=== PATIENT | female | born 1980 | race Caucasian/White ===

== ENCOUNTER 2017-09-20 12:11 | Emergency (ER) | payer OTHER, SELFPAY ==
[2017-09-20 12:14] VITALS: BP 188/111; BP 190/107; PULSE 101; PULSE 114; RESP 17; TEMP 36.8; O2SAT 98; O2SAT 99; BMI 48.1
[2017-09-20 12:21] VITALS: O2SAT 99
--- NOTE | 2017-09-20 12:37 | CT_ITS ---
STUDY: CT BRAIN WITHOUT CONTRAST REASON FOR EXAM: Female, 37 years old. RADIATION DOSAGE (If Supplied By Facility): CTDIvol = ( 44.99 ) mGy, DLP = ( 745.49 ) mGycm TECHNIQUE: Transaxial CT imaging of the brain was performed without administration of intravenous contrast material. Individualized dose optimization techniques were used for this CT. COMPARISON: None. FINDINGS: No evidence for shift of midline structures, mass effect or compression of the ventricles noted. No acute intra or extra-axial hemorrhage is seen. No abnormal intracranial fluid collections identified. A low-attenuation area in the posterior limb of the right internal capsule noted which may relate with a prominent perivascular space or chronic small infarct. The calvarium is intact. The mastoid air cells are clear. Partial opacification of the ethmoid vessels noted. Minimal mucosal thickening of the maxillary sinuses. CT/Brain/Head without Contrast IMPRESSION: No evidence for acute intracranial hemorrhage, mass effect or acute large territory infarcts. A low-attenuation area in the posterior limb of the right internal capsule noted which may relate with a prominent perivascular space or chronic small infarct Electronically Signed: Jacinto Zavala, at 13:24 EST Tel , Service support ,
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
[2017-09-20 14:30] VITALS: BP 158/96; PULSE 108; RESP 18; O2SAT 96
== END 2017-09-20 14:31 | disposition home or self-care (01) ==
LOC: ED 13:12
PROVIDERS: Emergency Provider Emergency Medicine; Family Provider Internal Medicine; PCP Internal Medicine
DX: S06.0X0A Concussion without loss of consciousness, initial encounter (principal); V89.2XXA Person injured in unspecified motor-vehicle accident, traffic, initial encounter; Y93.9 Activity, unspecified; Y92.9 Unspecified place or not applicable; Y99.9 Unspecified external cause status; Z72.0 Tobacco use
CPT/HCPCS: 70450; 99284

== ENCOUNTER 2019-10-29 10:08 | Emergency (ER) | payer MEDICAID, SELFPAY ==
[2019-10-29 10:09] VITALS: BP 139/72; PULSE 112; RESP 20; TEMP 36.7; O2SAT 99; BMI 48.7
[2019-10-29] MEDS: Famotidine 20 MG Tablet 40 MG PO (10:36)
[2019-10-29] MEDS: DiphenhydrAMINE 25 MG Capsule 50 MG PO (10:36)
--- NOTE | 2019-10-29 10:41 | ED.DCSUM_ITS ---
- ER Visit Summary Date of Service: 10/29/19 Chief Complaint: Hives History of Present Illness: The patient is a [address] Cartagena. She reports that she was placed on trazodone 3 weeks ago. Patient denies any change in soap, shampoo, laundry detergent, or fabric softener. No new clothing, beddi ng, carpeting, or pets. Patient reports that she has hives that began 4 days ago. She was seen in urgent care and was placed on prednisone. She is currently taking 40 mg a day. She has continued to take the trazodone. Her last dose was at 1030 yesterday. She reports that the rash worsened and she began getting short of breath at 4:00 this morning. Her last dose of Benadryl was at 1030 last night as well. Patient reports that she does have a cough that is accompanied this, but she states it feels more like a lump in her throat that is making her cough. She denies any fever or sore throat. Her cough is nonproductive. She does report she feels mildly short of breath. 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 No one else comes into his house. Otherwise she is maintained at the stay at home order. She lives with her and children who are not ill. She does not believe that she has been exposed to coronavirus. Physical Examination: Vitals: Stable. Afebrile. General: Well-nourished and well-developed. Head: Normocephalic atraumatic. HEENT: No angioedema of the lips, tongue, oropharynx. Neck: Supple, no lymphadenopathy. No JVD. Nontender. Cardiovascular: Regular rate and rhythm. No murmurs. Respiratory: No respiratory distress. Clear to auscultation bilaterally. Abdominal: Soft, nontender, nondistended, normal bowel sounds. No guarding, rebound, or peritoneal signs. Back: Nontender. Extremities: Nontender, no edema. Skin: Diffuse urticarial lesions. Neurologic: Alert and oriented ?3. Cranial nerves II through XII are intact. Normal strength and sensation. Psych: Normal affect. Emergency Department Course and Treatment: I reviewed trazodone and it can cause a rash. It can also cause hypertension which she has been experiencing. She was given a dose of Benadryl and Pepcid here. She is already taken prednisone this morning. Treatment Plan: Patient will be discharged with instructions to use Claritin which she already has. She will also be placed on Pepcid. Continue her prednisone. Stop taking the trazodone. Follow-up with her primary care physician 1 to 2 days if not improving. Return to the emergency department for any worsening symptoms. Disposition: To home in improved and stable condition. Impression: 1. Allergic reaction. This note was generated with [employer] dictation software. It may contain incorrect words, spelling, and punctuation that were not noted in review of the chart prior to signing ED Disposition - Plan for ED Patient: Instructions: ED ADVERSE DRUG REACTION Allergic Prescriptions: Famotidine [Pepcid] 40 mg PO DAILY #14 tablet Referrals: Uri Cartagena MD [Primary Care Provider] - 1-2 Days if not improving
== END 2019-10-29 10:59 | disposition home or self-care (01) ==
PROVIDERS: Emergency Provider Emergency Medicine; PCP Internal Medicine
DX: L50.0 Allergic urticaria (principal); Z72.0 Tobacco use
CPT/HCPCS: 99283

== ENCOUNTER 2020-07-26 09:53 | Day surgery (SDC) | payer MEDICAID, SELFPAY ==
[2020-07-11 08:43] VITALS: BMI 48.9
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
[2020-07-26 10:14] VITALS: BP 137/95; PULSE 85; RESP 18; TEMP 36.3; O2SAT 99; BMI 48.3
[2020-07-26 10:20] LABS: Internal QC Validated? YES +Cl - CLEAR BKGD; Pregnancy, Urine Negative Negative
[2020-07-26] MEDS: Lactated Ringers 1,000 ML 100 ML IV (10:33)
--- NOTE | 2020-07-26 11:00 | COLBX_PTH ---
PATIENT: SAMSON CASTRO LOC: EN U#:[id number] AGE/SX: 40/F ROOM: RE07/26/[address]: Dr. Valeriy Vickers MD : 1980 BED: DIS: 07/26/2020 SPEC #: [id number] RECD: 07/26/20 13:58 STATUS: GM MEHDI #: [id number] QUANG: 07/26/20 11:[address]: Valeriy Vickers DEPT: SURGICAL PATHOLOGY RECD BY: Janel Valentin ENTERED: 07/26/20 14:05 SP TYPE: COLON BX OTHR DR: Dr. Uri Cartagena MD Tissues: Sigmoid colon biopsy Procedures: Surgery Specimen Level IV HEADER OPERATION: [place] DIAGNOSIS: GERD; family history colon cancer TISSUE SUBMITTED: Sigmoid colon biopsy MICROSCOPIC DIAGNOSIS Sigmoid colon, biopsy: No pathologic change. AM:sea 07/31/2020 MICROSCOPIC DESCRIPTION Slides are reviewed. GROSS DESCRIPTION Received in fixative is one container labeled with the patient's name and designated sigmoid colon biopsy. The specimen consists of two irregular fragments of light ramey soft tissue that in aggregate measure 1 x 0.5 x 0.1 cm. The specimen is totally submitted in one cassette. / AM:sea 07/27/20 TC:5 CPT: 25337
[2020-07-26 11:16] VITALS: BP 137/72; BP 137/95; PULSE 74; RESP 18; TEMP 36.3; O2SAT 98
--- NOTE | 2020-07-26 11:18 | OP.EGD_ITS ---
Patient Name: Ricarda Weiner Procedure Date: 07/26/2020 10:37 AM Date of : 1980 Age: 40 Procedure: Upper GI endoscopy Indications: Heartburn, Suspected gastro-esophageal reflux disease Providers: Valeriy Vickers MD Referring MD: Uri Cartagena Medicines: Monitored Anesthesia Care Patient Profile: This is a 40 year old female. Refer to note in patient chart for documentation of history and physical. Complications: No immediate complications. Procedure: Pre-Anesthesia Assessment: - Prior to the procedure, a History and Physical was performed, and patient medications and allergies were reviewed. The patient's tolerance of previous anesthesia was also reviewed. The risks and benefits of the procedure and the sedation options and risks were discussed with the patient. All questions were answered, and informed consent was obtained. Prior Anticoagulants: The patient has taken no previous anticoagulant or antiplatelet agents. After reviewing the risks and benefits, the patient was deemed in satisfactory condition to undergo the procedure. After obtaining informed consent, the endoscope was passed under direct vision. Throughout the procedure, the patient's blood pressure, pulse, and oxygen saturations were monitored continuously. The gastroscope was introduced through the mouth, and advanced to the second part of duodenum. The upper GI endoscopy was accomplished without difficulty. The patient tolerated the procedure well. Scope In: 10:57:59 AM Scope Out: 10:59:44 AM Total Procedure Duration Time 0 hours 1 minute 45 seconds Findings: The esophagus was normal. The stomach was normal. The examined duodenum was normal. Impression: - Normal esophagus. - Normal stomach. - Normal examined duodenum. - No specimens collected. Recommendation: - Discharge patient to home. - Resume previous diet. - Continue present medications. Procedure Code(s): --- Professional --- 18157, Esophagogastroduodenoscopy, flexible, transoral; diagnostic, including collection of specimen(s) by brushing or washing, when performed (separate procedure) Diagnosis Code(s): --- Professional --- R12, Heartburn CPT copyright 2017 [employer]. All rights reserved. The codes documented in this report are preliminary and upon shingle carrier review may be revised to meet current compliance requirements. Valeriy Vickers MD 07/26/2020 11:18:20 AM This report has been signed electronically. Number of Addenda: 0 Note Initiated On: 07/26/2020 10:37 AM
--- NOTE | 2020-07-26 11:18 | OP.CCLET_ITS ---
07/26/2020 Uri Cartagena [address] [place] [address] Re : Upper GI endoscopy procedure for Ricarda Weiner Dear Dr. Cartagena This procedure was performed on Sunday, July 26, 2020. My impressions and recommendations are as follows: Impressions : - Normal esophagus. - Normal stomach. - Normal examined duodenum. - No specimens collected. Recommendations : - Discharge patient to home. - Resume previous diet. - Continue present medications. My findings are described in the full procedure note, which is enclosed. If I can be of further assistance, please feel free to contact me at Doctor phone number(s): , Work: . Sincerely, Valeriy Vickers MD 07/26/2020 11:18:20 AM This report has been signed electronically.
[2020-07-26 11:20] VITALS: BP 125/84; BP 137/95; PULSE 73; RESP 18; O2SAT 99
--- NOTE | 2020-07-26 11:20 | OP.CCLET_ITS ---
07/26/2020 Uri Cartagena [address] [place] [address] Re : Colonoscopy procedure for Ricarda Husam Dear Dr. Cartagena This procedure was performed on Sunday, July 26, 2020. My impressions and recommendations are as follows: Impressions : - Congested mucosa in the sigmoid colon. Biopsied. - The examination was otherwise normal on direct and retroflexion views. Recommendations : - Discharge patient to home. - Resume previous diet. - Continue present medications. - Await pathology results. - Repeat colonoscopy in 5 years for surveillance. My findings are described in the full procedure note, which is enclosed. If I can be of further assistance, please feel free to contact me at Doctor phone number(s): , Work: . Sincerely, Valeriy Vickers MD 07/26/2020 11:20:29 AM This report has been signed electronically.
--- NOTE | 2020-07-26 11:20 | OP.COLON_ITS ---
Patient Name: Ricarda Weiner Procedure Date: 07/26/2020 11:00 AM Date of : 1980 Age: 40 Procedure: Colonoscopy Indications: Screening in patient at increased risk: Colorectal cancer in mother before age 60 Providers: Valeriy Vickers MD Referring MD: Uri Cartagena Medicines: Monitored Anesthesia Care Patient Profile: This is a 40 year old female. Refer to note in patient chart for documentation of history and physical. Last Colonoscopy: none. The patient's first colonoscopy is today. Complications: No immediate complications. Estimated blood loss: Minimal. Procedure: Pre-Anesthesia Assessment: - Prior to the procedure, a History and Physical was performed, and patient medications and allergies were reviewed. The patient's tolerance of previous anesthesia was also reviewed. The risks and benefits of the procedure and the sedation options and risks were discussed with the patient. All questions were answered, and informed consent was obtained. Prior Anticoagulants: The patient has taken no previous anticoagulant or antiplatelet agents. After reviewing the risks and benefits, the patient was deemed in satisfactory condition to undergo the procedure. After I obtained informed consent, the scope was passed under direct vision. Throughout the procedure, the patient's blood pressure, pulse, and oxygen saturations were monitored continuously. The pediatric colonoscope was introduced through the anus and advanced to the cecum, identified by appendiceal orifice and ileocecal valve. The colonoscopy was performed without difficulty. The patient tolerated the procedure well. The quality of the bowel preparation was good. Scope In: 11:01:22 AM Scope Withdrawal Time 0 hours 5 minutes 32 seconds Scope Out: 11:10:13 AM Total Procedure Duration Time 0 hours 8 minutes 51 seconds Findings: An area of mildly congested mucosa was found in the sigmoid colon. This was biopsied with a cold forceps for histology. The exam was otherwise without abnormality on direct and retroflexion views. Impression: - Congested mucosa in the sigmoid colon. Biopsied. - The examination was otherwise normal on direct and retroflexion views. Recommendation: - Discharge patient to home. - Resume previous diet. - Continue present medications. - Await pathology results. - Repeat colonoscopy in 5 years for surveillance. Procedure Code(s): --- Professional --- 85631, Colonoscopy, flexible; with biopsy, single or multiple Diagnosis Code(s): --- Professional --- Z80.0, Family history of malignant neoplasm of digestive organs K63.89, Other specified diseases of intestine CPT copyright 2017 [employer]. All rights reserved. The codes documented in this report are preliminary and upon manager banking review may be revised to meet current compliance requirements. Valeriy Vickers MD 07/26/2020 11:20:29 AM This report has been signed electronically. Number of Addenda: 0 Note Initiated On: 07/26/2020 11:00 AM
[2020-07-26 11:25] VITALS: BP 137/95; BP 143/99; PULSE 76; RESP 69; O2SAT 100
[2020-07-26 11:30] VITALS: BP 130/106; BP 137/95; PULSE 64; RESP 18; TEMP 36.3; O2SAT 100
[2020-07-26 11:58] VITALS: BP 137/95
== END 2020-07-26 12:00 | disposition home or self-care (01) ==
LOC: EN 09:53 → AC 09:54
PROVIDERS: Anesthesiology; PCP Internal Medicine; Referring Provider Internal Medicine; Visit Provider Surgery
PROC: 0DJD8ZZ Inspection of Lower Intestinal Tract, Via Natural or Artificial Opening Endoscopic (ICD-10-PCS; CPT 45378; principal; 2020-07-26 10:55)
DX: Z12.11 Encounter for screening for malignant neoplasm of colon (principal); K21.9 Gastro-esophageal reflux disease without esophagitis; E66.01 Morbid (severe) obesity due to excess calories; F17.200 Nicotine dependence, unspecified, uncomplicated; I10 Essential (primary) hypertension; Z68.42 Body mass index [BMI] 45.0-49.9, adult; Z80.0 Family history of malignant neoplasm of digestive organs; Z20.828 Contact with and (suspected) exposure to other viral communicable diseases; Z79.899 Other long term (current) drug therapy
CPT/HCPCS: 43235; 45380; 81025; 87426; 88305; C9803; J7120; J2405

== ENCOUNTER 2020-11-12 14:28 | Emergency (ER) | payer MEDICAID, SELFPAY ==
[2020-11-12 14:30] VITALS: BP 164/100; PULSE 106; RESP 16; TEMP 36.6; O2SAT 95; BMI 48.8
--- NOTE | 2020-11-12 14:56 | ED.DCSUM_ITS ---
- ER Visit Summary Date of Service: 11/12/20 Chief Complaint: Dental pain History of Present Illness: The patient is a [address] Cartagena. She does not have a dentist. She reports that she broke her left mandibular third molar approximately week ago. She did not have any pain until yesterday. She reports that since that time she had a sharp pain is 1010 worsening to 10 currently. Is worsened by eating. She taken ibuprofen without relief. She does report is sensitive to hot and cold temperatures. Physical Examination: Vitals: Stable. Afebrile. Mouth: No trismus. No edema of the floor of the mouth. Pain with percussion of left mandibular third molar. Posterior corner of this tooth is avulsed. There is no focal abscess. General: A&O x 3. NAD. Cardiovascular exam: Regular rate and rhythm, no murmur, rub or gallop. Respiratory exam: Clear to auscultation bilaterally. No wheezes or stridor. Abdominal exam: Soft, nontender, nondistended, normal bowel sounds. No peritoneal signs. Extremity: No clubbing, cyanosis, or edema. Emergency Department Course and Treatment: Patient was given a dose of morphine and Toradol IM. She was given Zofran and penicillin p.o. Treatment Plan: Patient will be discharged with [place], penicillin, and Zofran. Instructed to follow-up with dentist soon as possible. A list of local dentists was provided. Return to the emergency department for any worsening symptoms. Disposition: To home in improved and stable condition. Impression: 1. Dental pain. This note was generated with [email or web address] dictation software. It may contain incorrect words, spelling, and punctuation that were not noted in review of the chart prior to signing ED Disposition - Plan for ED Patient: Disposition: Home or Assisted Living Instructions: ED Dental Pain Prescriptions: Hydrocodone Bitart/Apap 5-325 [[place] 5MG-325MG] 1 tablet PO Q4H PRN PRN 2 Days #10 tab PRN Reason: Pain Prescription Printed Penicillin V Potassium 500 mg PO 4X/DAY #40 tablet Prescription Printed Ondansetron [Zofran Odt] 4 mg PO Q8H PRN PRN #10 tablet PRN Reason: Nausea Prescription Printed Referrals: Dentist,Your [STAFF PHYSICIAN] - As soon as possible
[2020-11-12] MEDS: Penicillin Vk 250 MG Tablet 500 MG PO (15:07)
[2020-11-12] MEDS: Ketorolac 30 MG/ML Syringe IM (15:08)
[2020-11-12] MEDS: Ondansetron ODT 4 MG Tablet PO (15:08)
[2020-11-12] MEDS: morphine 8 MG/ML Syringe IM (15:11)
[2020-11-12 15:15] VITALS: BP 159/102; PULSE 94; RESP 20; O2SAT 97
== END 2020-11-12 15:41 | disposition home or self-care (01) ==
PROVIDERS: Emergency Provider Emergency Medicine; PCP Internal Medicine
DX: K08.89 Other specified disorders of teeth and supporting structures (principal); I10 Essential (primary) hypertension; Z72.0 Tobacco use; Z79.899 Other long term (current) drug therapy
CPT/HCPCS: 96372; 99283

== ENCOUNTER → 2022-06-18 | Outpatient (CLI) | payer MEDICAID, SELFPAY ==
--- NOTE | 2022-06-18 16:53 | BI_ITS ---
MAMMOGRAPHY - BILATERAL SCREENING REASON FOR EXAM: Female, 42 years old. Routine annual screening examination. PERTINENT HISTORY: Non-contributory. TECHNIQUE: Digital bilateral breast david (3D mammographic acquisition) in the CC and MLO projections. 2-D mediolateral oblique (MLO) and craniocaudad (CC) views of both breasts were obtained. CAD: Full Field Digital Mammography with Computer Added Detection was performed. COMPARISON: None. Baseline examination. FINDINGS: Breast Composition: There are scattered areas of fibroglandular density. There is an asymmetry in the right upper breast, middle depth, approximately 10.5 cm posterior to nipple, and seen best on 3-D david MLO views. Further assessment recommended with spot compression views and ultrasound as needed. No suspicious calcifications. BI/SCRN MAMM (CAD)W/DAVID BILAT IMPRESSION: Further imaging evaluation recommended, as described above. (E) Recall Side: Right Breast ASSESSMENT CATEGORY: BIRADS Category 0: Incomplete. Need additional imaging evaluation. A letter regarding these results will be sent to the patient by the facility within 30 days. Approximately 10% of breast cancers are not detected by mammography. A normal mammogram should not delay biopsy of a clinically suspicious abnormality. Electronically Signed: Siva Guaman, at 11:32 EST ,
== END | disposition home or self-care (01) ==
DX: Z12.31 Encounter for screening mammogram for malignant neoplasm of breast (principal)
CPT/HCPCS: 77063; 77067

== ENCOUNTER → 2022-07-02 | Outpatient (CLI) | payer MEDICAID, SELFPAY ==
--- NOTE | 2022-07-02 14:34 | US_ITS ---
STUDY: ULTRASOUND BREAST - RIGHT REASON FOR EXAM: Female, 42 years old. Abnormal screening mammogram. TECHNIQUE: Axial and longitudinal images of the RIGHT breast were performed with a high resolution ultrasound transducer. # OF IMAGES: 37 COMPARISON: Comparison is made with prior mammogram dated 07/02/2022 and 06/18/2022. FINDINGS: RIGHT Breast: The upper outer aspect of the right breast was examined by ultrasound. No sonographic abnormality is seen. US/Breast Limited Unilateral IMPRESSION: No sonographic abnormality is seen. ASSESSMENT CATEGORY: BIRADS Category 1: Negative. A letter regarding these results will be sent to the patient by the facility within 30 days. Electronically Signed: Derrick Garg MD at 12:53 EST ,
--- NOTE | 2022-07-02 14:34 | BI_ITS ---
MAMMOGRAPHY - UNILATERAL DIAGNOSTIC: RIGHT BREAST REASON FOR EXAM: Female, 42 years old. Abnormal screening mammogram. PERTINENT HISTORY: Non-contributory. TECHNIQUE: Compression spot views of the right breast in the mediolateral oblique and craniocaudal projections were obtained. CAD: Full Field Digital Mammography with Computer Added Detection was performed. COMPARISON: Comparison is made with prior study dated 06/18/2022. FINDINGS: Breast Composition: There are scattered areas of fibroglandular density. There are no dominant masses or suspicious calcifications. No other significant abnormalities are identified. BI/DIAG MAMM W/CAD, UNILAT IMPRESSION: Negative unilateral diagnostic mammogram. Correlation with targeted ultrasound of the breast is recommended. ASSESSMENT CATEGORY: BIRADS Category 0: Incomplete. Need additional imaging evaluation. A letter regarding these results will be sent to the patient by the facility within 30 days. Approximately 10% of breast cancers are not detected by mammography. A normal mammogram should not delay biopsy of a clinically suspicious abnormality. Electronically Signed: Derrick Garg MD at 15:36 EST ,
== END | disposition home or self-care (01) ==
LOC: OPBI 14:29
DX: R92.8 Other abnormal and inconclusive findings on diagnostic imaging of breast (principal)
CPT/HCPCS: 76642; 77065

== ENCOUNTER 2023-03-10 05:38 | Emergency (ER) | payer MEDICAID, SELFPAY ==
[2023-03-10 05:39] VITALS: BP 185/105; PULSE 77; RESP 18; TEMP 36.1; O2SAT 97; BMI 43.2
[2023-03-10] MEDS: Penicillin Vk 250 MG Tablet 500 MG PO (05:52)
[2023-03-10] MEDS: Bupivacaine Mpf 0.5% 30 ML VIAL 5 ML INFILT (05:52)
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
== END 2023-03-10 06:36 | disposition home or self-care (01) ==
PROVIDERS: Emergency Provider Emergency Medicine; Visit Provider Emergency Medicine
DX: K04.7 Periapical abscess without sinus (principal); F17.210 Nicotine dependence, cigarettes, uncomplicated; K03.81 Cracked tooth
CPT/HCPCS: 41800; 64999; 99283

== ENCOUNTER → 2024-03-31 | Outpatient (CLI) | payer MEDICAID, SELFPAY ==
--- NOTE | 2024-03-31 14:00 | RAD_ITS ---
STUDY: X-RAY - RIGHT KNEE REASON FOR EXAM: Female, 44 years old. CHRONIC PAIN TECHNIQUE: 2 views of the right knee. COMPARISON: None. FINDINGS: Normal visualized distal femur. Normal visualized proximal tibia and fibula. Normal proximal tibiofibular articulation. There is no demonstrated fracture. Normal medial femorotibial compartment. Normal lateral femorotibial compartment. There is mild degenerative arthrosis of the patellofemoral articulation. There is a small joint effusion. The soft tissue structures are unremarkable. 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 Small joint effusion. Electronically Signed: Aramis Mims MD at 14:47 EDT ,
[2024-03-31 14:54] LABS: Cholesterol 166 mg/dL (200); High Density Lipoprotein 53 mg/dL; Triglycerides 83 mg/dL; Very Low Density Lipoprotein 17 mg/dL (5-40)
[2024-03-31 19:36] LABS: Vitamin D,25 Hydroxy 47.6 ng/mL
== END | disposition home or self-care (01) ==
LOC: LAB 13:42
PROVIDERS: Referring Provider Nurse Practitioner Family; Visit Provider Nurse Practitioner Family
DX: E55.9 Vitamin D deficiency, unspecified (principal); I10 Essential (primary) hypertension; M25.561 Pain in right knee; G89.29 Other chronic pain
CPT/HCPCS: 36415; 73560; 80061; 82306

== ENCOUNTER 2024-09-01 11:12 | Emergency (ER) | payer MEDICAID, SELFPAY ==
[2024-09-01 11:12] VITALS: BP 144/101; PULSE 109; RESP 20; TEMP 36.9; O2SAT 100; BMI 39.4
[2024-09-01 11:14] VITALS: BP 144/101; PULSE 109; RESP 20; TEMP 36.9; O2SAT 100
--- NOTE | 2024-09-01 11:43 | RAD_ITS ---
PROCEDURE: CHEST PA AND LATERAL REASON FOR EXAM: Cough; fever; general illness. TECHNIQUE: Frontal and lateral views of the chest. COMPARISON: None. FINDINGS: The heart size is normal. The mediastinal contour is unremarkable. The lungs are clear. The bones are unremarkable. RAD/Chest PA and Lateral IMPRESSION: NEGATIVE CHEST Reading Location: [id number]
[2024-09-01] MEDS: Vancomycin HCl 2,000 MG in 0.9% Normal Saline (500mL Bag) 500 ML 250 MG IV (12:13)
[2024-09-01 12:17] LABS: Absolute Lymphocyte Count 1.43 X10^3/uL (0.83-4.51); Absolute Neutrophil Count 13.8 X10^3/uL (2.0-7.7); Basophil# 0.05 X10^3/uL; Basophil% 0.3 % (0-1); Eosinophil# 0.03 X10^3/uL; Eosinophils% 0.2 % (0-5); Hematocrit 40.2 % (37-47); Hemoglobin 13.5 g/dL (12.0-15.0); Lymphocyte # 1.43 X10^3/ul (0.83-4.51); Lymphocyte % 8.6 % (19-41); Mean Corp Hgb Conc 33.6 g/dL (32-36); Mean Corpuscular Hgb 33.3 pg (27.0-32.0); Mean Corpuscular Volume 99.3 fL (81-99); Mean Platelet Vol. 9.3 fl (6.2-12.0); Monocyte# 1.15 X10^3/uL; Monocyte% 6.9 % (0-10); NRBC Flagged by Analyzer 0 % (0-5); Neutrophil # 13.82 X10^3/uL (2.7-7.7); Neutrophil % 83.2 % (47-70); Platelet Count 245 K/mm3 (150-450); RBC Distribution Width CV 12.5 % (11.6-14.6); RBC Distribution Width SD 45.6 fl (35.1-43.9); Red Blood Count 4.05 M/mm3 (4.2-5.4); White Blood Count 16.6 K/mm3 (4.4-11.0)
[2024-09-01 12:31] LABS: Anion Gap 6 (5-15); BUN 11 mg/dL (7-18); BUN/Creat Ratio 16.5 RATIO (10-20); Calcium,Total 8.8 mg/dL (8.5-10.1); Chloride 102 mmol/L (98-107); Creatinine, Serum 0.67 mg/dL (0.55-1.02); EST Glomerular Filtration Rate 103 mL/min (>60); Est Glom Filt Rate - Afr Amer 125 mL/min (>60); Estimated Creatinine Clearance 152.18 ml/min; Glucose 111 mg/dL (74-106); Potassium 3.7 mmol/L (3.5-5.1); Sodium Level 136 mmol/L (136-145)
[2024-09-01 13:34] VITALS: BP 160/69; PULSE 87; RESP 16; O2SAT 99
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
[2024-09-01 14:46] VITALS: BP 155/74; PULSE 78; RESP 15; TEMP 36.9; O2SAT 99
== END 2024-09-01 14:47 | disposition home or self-care (01) ==
PROVIDERS: Emergency Provider Emergency Medicine; PCP Nurse Practitioner Family; Visit Provider Emergency Medicine
DX: J06.9 Acute upper respiratory infection, unspecified (principal); L02.215 Cutaneous abscess of perineum; I10 Essential (primary) hypertension; R05.9 Cough, unspecified; K21.9 Gastro-esophageal reflux disease without esophagitis; F32.A Depression, unspecified; Z79.899 Other long term (current) drug therapy; F17.210 Nicotine dependence, cigarettes, uncomplicated
CPT/HCPCS: 71046; 80048; 85025; 87070; 87075; 87077; 87186; 87205; 96365; 96366; 99285; A4216